=== PATIENT | male | born 1940 | race Caucasian/White ===

== ENCOUNTER 2018-02-20 17:54 | Inpatient (IN) | payer MEDICARE, MEDICAID ==
[~2018-02-20] VITALS: Ht 165.1 cm; Wt 62.6 kg
--- NOTE | 2018-02-20 18:25 | NUR ---
MASON FROM [facility] FOR MEDICAL CLEARANCE AND GEROPSYCH ADMIT FOR +SI NO PLANS AT THIS TIME/ HEARING VOICES, HOLD PLACED 11:35AM. PATIENT IS CALM AND COOPERATIVE, BREATHING EVEN AND UNALBORED. NO SOB, NAD, VITALS STABLE. SAFETY AND COMFORT MEASURES IN PLACE. AWAITING MD ORDERS
[2018-02-20 18:32] LABS: BASOPHILS % (AUTO) 0.7 % (0.0-2.0); EOSINOPHILS % (AUTO) 4.7 % (0.0-6.0); HEMATOCRIT 40 % (39-51); HEMOGLOBIN 13.5 g/dL (13.5-17.5); LYMPHOCYTES # (AUTO) 1.4 /CMM (0.8-4.8); LYMPHOCYTES % (AUTO) 33.6 % (20.0-44.0); MEAN CORPUSCULAR HGB CONC 34 g/dl (31.0-36.0); MEAN CORPUSCULAR VOLUME 86 fL (80-96); MONOCYTES # (AUTO) 0.4 /CMM (0.1-1.30); MONOCYTES % (AUTO) 10.1 % (2.0-12.0); NEUTROPHILS % (AUTO) 50.9 % (43.0-81.0); PLATELET COUNT (AUTO) 130 /CMM (150-450); RDW COEFFICIENT OF VARIATION 14.5 (11.5-15.0); RED BLOOD CELL COUNT(AUTO) 4.64 MIL/uL (4.5-6.0)
--- NOTE | 2018-02-20 18:35 | NUR ---
DATA LIBRARIAN AT BEDSIDE FOR BLOOD DRAW.
[2018-02-20 18:39] LABS: CALCIUM, SERUM 9.6 mg/dL (8.5-10.1); CARBON DIOXIDE 28 mmol/L (21-32); CHLORIDE 106 mmol/L (98-107); CREATININE 1.2 mg/dL (0.6-1.3); GLUCOSE 88 mg/dL (74-106); POTASSIUM 4.2 mmol/L (3.5-5.1); SODIUM SERUM 140 mmol/L (136-145); UREA NITROGEN, BLOOD 20 mg/dL (7-18)
[2018-02-20] MEDS ORDERED: OLAN5TAB3 PO (18:40)
[2018-02-20] MEDS ORDERED: ZOLP5TAB8 PO (18:40)
[2018-02-20] MEDS ORDERED: GABA-534 PO (18:40)
[2018-02-20] MEDS ORDERED: ASPI-1169 PO (18:40)
[2018-02-20] MEDS ORDERED: LEVO50TA8 PO (18:40)
[2018-02-20] MEDS ORDERED: TRAZ-182 PO (18:40)
[2018-02-20] MEDS ORDERED: CETI-108 PO (18:40)
[2018-02-20] MEDS ORDERED: ESCI20TA PO (18:40)
[2018-02-20] MEDS ORDERED: TIMO5DRO35 EACHEYE (18:40)
[2018-02-20] MEDS ORDERED: RANI150T8 PO (18:40)
[2018-02-20 18:45] LABS: ACETAMINOPHEN 3 ug/ml (10-30); ALANINE AMINOTRANSFERASE 22 U/L (12-78); ALBUMIN 3.6 g/dL (3.4-5.0); ALKALINE PHOSPHATASE 61 U/L (46-116); ASPARTATE AMINOTRANSFERASE 17 U/L (15-37); BILIRUBIN,DIRECT 0.1 mg/dL (0.0-0.2); BILIRUBIN,TOTAL 0.5 mg/dL (0.2-1.0); SALICYLATE < 2.8 mg/dL (2.8-20.0); TOTAL PROTEIN, SERUM 6.7 g/dL (6.4-8.2)
[2018-02-20 18:46] LABS: ALCOHOL, BLOOD < 3 mg/dL (0-0)
--- NOTE | 2018-02-20 18:51 | NUR ---
URINE OBTAINED AND SENT TO LAB.
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
--- NOTE | 2018-02-20 19:20 | NUR ---
URINE SENT TO ER STAT LAB. BED RECEIVED. AWAITING URINE.
[2018-02-20 19:24] LABS: APPEARANCE,URINE Clear (CLEAR); BILIRUBIN,URINE Negative (NEGATIVE); BLOOD, URINE Negative Ery/uL (NEGATIVE); COLOR,URINE Yellow (YELLOW); KETONES,URINE Negative (NEGATIVE); LEUKOCYTE ESTERASE ,URINE Negative (NEGATIVE); NITRITE, URINE Negative (NEGATIVE); PROTEIN,URINE Negative (NEGATIVE); UGLUCOSE Negative (NEGATIVE)
[2018-02-20 19:44] LABS: BACTERIA,URINE None seen /HPF (None Seen); RBC,URINE 0-2 /HPF (0-2); SQUAMOUS EPITHELIAL CELL,UR Few /HPF (None Seen); WBC,URINE 0-2 /HPF (0-3)
[2018-02-20 20:30] VITALS: BP 135/57
--- NOTE | 2018-02-20 20:35 | NUR ---
ADMITTED FROM [facility], INITIALLY FROM [facility][1]. PATIENT ADMITTED ON 5150 HOLD FOR DTS. PATIENT ARRIVED TO THE UNIT AROUND 2030 VIA WHEELCHAIR ACCOMPANIED BY 1 MALE ER STAFF. UPON FACE TO FACE PATIENT PATIENT EXPRESSED THOUGHT OF KILLING HIMSELF. AND THAT HE WILL KILL HIMSELF IF HE LEAVES THE CLINIC. REPORTS HE HAS PLAN HOW TO KILL HIMSELF BUT WILL NOT DISCLOSE. PATIENT WAS PLACED IN BED COMFORTABLY. PATIENT IS AWAKE, ALERT, ORIENTED X3-4. PATIENT SIGNED CONTRACT FOR SAFETY. PATIENT SHOWS NO S/S OF PAIN, RESPIRATION EVEN, BREATHING PATTERN NON-LABORED, NO ACUTE DISTRESS NOTED. SKIN WARM DRY AND INTACT, NOTED ABRASION ON THE RIGHT SIDE OF FACE. PATIENT IS AMBULATORY. PATIENT DENIES SI/HI. PATIENT CALM, COOPERATIVE, WELL GROOMED, APPROPRIATE, THOUGH PROCESS INTACT. PATIENT IS UNDER THE PSYCHIATRIC CARE OF DR. ALEXANDER AND MEDICAL CARE OF DR. COULTER. MED RECON NEEDS TO BE DONE. PAGED SR. MARYLIN. PATIENT CALLED HIS DAUGHTER AGUILAR, NOTIFIED THAT HE IS ADMITTED TO THE HOSPITAL. DAUGHTER AGUILAR CALLED LATER, LEFT A MESSAGE THAT SHE WILL VISIT IN THE MORNING. PATIENT WAS MADE AWARE OF HER MESSAGE. BELONGINGS WERE INVENTORIED AND CHECKED FOR CONTRABAND. BED LOCKED AND PLACED ON LOWEST POSITION. WILL CONTINUE TO MONITOR Q 15 MINS. TO MAINTAIN SAFETY.
[2018-02-20] MEDS ORDERED: MAGNESIUM HYDROXIDE 30 ML UDC PO PRN (21:00)
[2018-02-20] MEDS: TEMAZEPAM 7.5 MG CAPSULE PO PRN (22:05)
--- NOTE | 2018-02-20 22:11 | NUR ---
TEMAEZPAM 15 MG CAP PO GIVEN FOR INSOMNIA PER PATIENT'S REQUEST.
[2018-02-21 08:00] VITALS: BP 120/67
[2018-02-21 08:23] LABS: CHOLESTEROL 149 mg/dL (<200); HDL CHOLESTEROL 50 mg/dL (40-60); LDL 95 mg/dL (0-99); TRIGLYCERIDES 63 mg/dL (30-150)
[2018-02-21 08:25] LABS: ALANINE AMINOTRANSFERASE 27 U/L (12-78); ALBUMIN 3.8 g/dL (3.4-5.0); ALKALINE PHOSPHATASE 59 U/L (46-116); ASPARTATE AMINOTRANSFERASE 28 U/L (15-37); BILIRUBIN,TOTAL 0.8 mg/dL (0.2-1.0); CALCIUM, SERUM 9.1 mg/dL (8.5-10.1); CARBON DIOXIDE 26 mmol/L (21-32); CHLORIDE 105 mmol/L (98-107); CREATININE 1.2 mg/dL (0.6-1.3); GLUCOSE 158 mg/dL (74-106); POTASSIUM 3.9 mmol/L (3.5-5.1); SODIUM SERUM 140 mmol/L (136-145); TOTAL PROTEIN, SERUM 7.5 g/dL (6.4-8.2); UREA NITROGEN, BLOOD 18 mg/dL (7-18)
[2018-02-21 08:45] LABS: BASOPHILS % (AUTO) 0.4 % (0.0-2.0); EOSINOPHILS % (AUTO) 2.9 % (0.0-6.0); HEMATOCRIT 43 % (39-51); HEMOGLOBIN 14.1 g/dL (13.5-17.5); LYMPHOCYTES # (AUTO) 1.3 /CMM (0.8-4.8); LYMPHOCYTES % (AUTO) 23.4 % (20.0-44.0); MEAN CORPUSCULAR HGB CONC 33 g/dl (31.0-36.0); MEAN CORPUSCULAR VOLUME 89 fL (80-96); MONOCYTES # (AUTO) 0.3 /CMM (0.1-1.30); MONOCYTES % (AUTO) 4.7 % (2.0-12.0); NEUTROPHILS # (AUTO) 3.7 /CMM (1.8-8.9); NEUTROPHILS % (AUTO) 68.6 % (43.0-81.0); PLATELET COUNT (AUTO) 145 /CMM (150-450); RDW COEFFICIENT OF VARIATION 15.9 (11.5-15.0); RED BLOOD CELL COUNT(AUTO) 4.87 MIL/uL (4.5-6.0); WHITE BLOOD COUNT (AUTO) 5.4 K/uL (4.3-11.0)
--- NOTE | 2018-02-21 09:55 | NUR ---
GPS/MADHU ROSA NP CONTACTED WITH REQUEST TO [facility]
--- NOTE | 2018-02-21 11:30 | NUR ---
GPS/RN PT WAS PROVIDED WITH ACCESS TO HIS PERSONAL CELLPHONE TO GET CONTACT NUMBERS AND TO CALL [facility] UNDER [employer] SUPERVISION. PT HAS ACCESS TO PORTABLE HOSPITAL PHONES ALL THE TIME. MOE WIGGINS CONTACTED AGAIN TO [facility]. RECONCILIATION .
[2018-02-21] MEDS: MAG HYDROX/AL HYDROX/SIMETH 30 ML UDC PO PRN (14:16)
[2018-02-21] MEDS: ACETAMINOPHEN 325 MG TABLET PO PRN (15:32)
[2018-02-21 16:00] VITALS: BP 121/54
[2018-02-21] MEDS ORDERED: GABAPENTIN 300 MG CAPSULE PO SCH (17:00)
[2018-02-21 20:00] VITALS: BP 137/67
[2018-02-21] MEDS: FAMOTIDINE (20 MG) 20 MG TABLET PO SCH (20:31)
[2018-02-21] MEDS: QUETIAPINE FUMARATE 25 MG TABLET PO SCH (20:32)
[2018-02-21] MEDS: TRAZODONE 50 MG TABLET PO SCH (21:05)
[2018-02-21] MEDS: TEMAZEPAM 7.5 MG CAPSULE PO PRN (21:06)
--- NOTE | 2018-02-21 21:37 | NUR ---
GPS/RN-CALLED DR. COULTER TO CLARIFY ORDER OF GABAPENTIN.ORDERED TO D/C PREVIOUS ORDER AND CHANGE IT TO GABAPENTIN 600 MG.TID,NOTED AND CARRIED OUT.
[2018-02-22 08:00] VITALS: BP 132/67
[2018-02-22] MEDS: QUETIAPINE FUMARATE 25 MG TABLET PO SCH ×2 (08:15→21:52)
[2018-02-22] MEDS: FAMOTIDINE (20 MG) 20 MG TABLET PO SCH ×2 (08:15→21:51)
[2018-02-22] MEDS: GABAPENTIN 300 MG CAPSULE PO SCH ×3 (08:19→16:34)
[2018-02-22] MEDS: cetrizine 10 MG TABLET PO SCH (08:19)
[2018-02-22] MEDS: ASPIRIN 81 MG TAB.CHEW PO SCH (08:19)
[2018-02-22] MEDS: LEVOTHYROXINE SODIUM 50 MCG TABLET PO SCH (08:20)
[2018-02-22] MEDS: SERTRALINE HCL 50 MG TABLET PO SCH (08:20)
[2018-02-22] MEDS: TIMOLOL 0.5% SOLN OPHTH 5 ML BOTTLE EACHEYE SCH (08:28)
[2018-02-22 16:00] VITALS: BP 102/56
[2018-02-22 20:00] VITALS: BP 146/73
[2018-02-22] MEDS: TRAZODONE 50 MG TABLET PO SCH (21:52)
[2018-02-22] MEDS: TEMAZEPAM 7.5 MG CAPSULE PO PRN (22:58)
[2018-02-23] MEDS: LEVOTHYROXINE SODIUM 50 MCG TABLET PO SCH (07:55)
[2018-02-23] MEDS: GABAPENTIN 300 MG CAPSULE PO SCH ×3 (08:02→16:20)
[2018-02-23] MEDS: FAMOTIDINE (20 MG) 20 MG TABLET PO SCH ×2 (08:02→21:01)
[2018-02-23] MEDS: ASPIRIN 81 MG TAB.CHEW PO SCH (08:02)
[2018-02-23] MEDS: cetrizine 10 MG TABLET PO SCH (08:02)
[2018-02-23] MEDS: TIMOLOL 0.5% SOLN OPHTH 5 ML BOTTLE EACHEYE SCH (08:02)
[2018-02-23] MEDS: QUETIAPINE FUMARATE 25 MG TABLET PO SCH ×2 (08:02→21:01)
[2018-02-23] MEDS: SERTRALINE HCL 50 MG TABLET PO SCH (08:02)
[2018-02-23 09:30] VITALS: BP 122/62
--- NOTE | 2018-02-23 15:51 | NUR ---
Initial Discharge Plan: Pt currently lives with his family in their home located at [address] [place] [address]; ([phone]). Per pt, he stated that he would like to be transferred to a [facility] facility. SW will work with the pt and the MD regarding appropriate discharge planning. SW will form a safe and proper discharge.
--- NOTE | 2018-02-23 15:51 | NUR ---
MIO called the pt's daughter, Sherice ([phone]), and received a history from her about the pt. The SW then informed the daughter about the discharge plan and she stated that the plan that the psychiatrist thinks is the best is acceptable to her.
[2018-02-23 16:40] VITALS: BP 96/55
[2018-02-23 20:39] VITALS: BP 128/61
[2018-02-23] MEDS: TRAZODONE 50 MG TABLET PO SCH (21:01)
[2018-02-24] MEDS: TEMAZEPAM 7.5 MG CAPSULE PO PRN (00:37)
[2018-02-24 08:00] VITALS: BP 106/54
[2018-02-24] MEDS: LEVOTHYROXINE SODIUM 50 MCG TABLET PO SCH (08:16)
[2018-02-24] MEDS: FAMOTIDINE (20 MG) 20 MG TABLET PO SCH ×2 (08:17→21:24)
[2018-02-24] MEDS: ASPIRIN 81 MG TAB.CHEW PO SCH (08:17)
[2018-02-24] MEDS: SERTRALINE HCL 50 MG TABLET PO SCH (08:17)
[2018-02-24] MEDS: QUETIAPINE FUMARATE 25 MG TABLET PO SCH ×2 (08:17→21:24)
[2018-02-24] MEDS: cetrizine 10 MG TABLET PO SCH (08:17)
[2018-02-24] MEDS: GABAPENTIN 300 MG CAPSULE PO SCH ×3 (08:17→16:04)
[2018-02-24] MEDS: TIMOLOL 0.5% SOLN OPHTH 5 ML BOTTLE EACHEYE SCH (08:19)
[2018-02-24 16:05] VITALS: BP 100/59
--- NOTE | 2018-02-24 19:30 | NUR ---
GPS RN NOTE, RECEIVED PATIENT AWAKE AND IN BED, NO S/S OR COMPLAINTS OF PAIN AT THIS TIME. PATIENT IS DISPLAYING NO S/S OF APPARENT DISTRESS AT THIS TIME. PATIENT BREATHING IS UNLABORED WITH EQUAL RISE AND FALL OF THE CHEST. PATIENT IS ALERT AND ORIENTED X 3 ON ROOM AIR WITH A SPO2 OF 96%. PATIENT IS MED COMPLIANT, CALM, COOPERATIVE, DISORGANIZED, CONFUSED AT TIMES, AND NEEDS REDIRECTION. PATIENT DENIES SUICIDE IDEATIONS AND HOMICIDAL IDEATIONS AT THIS TIME. PATIENT ASSISTED WITH TURNING AND REPOSITIONING Q 2HRS AND PRN FOR COMFORT AND CIRCULATION. PATIENT HAS NO NEEDS AT THIS TIME. PATIENT EDUCATED ON THE USE OF THE CALL [place]. PATIENT BED SIDE RAILS UP X 2 FOR SAFETY, BED IS LOCKED, LOW, AND I WILL CONTINUE TO MONITOR AND MAINTAIN SAFETY Q15 MIN WITH THE HELP OF STAFF.
[2018-02-24 20:00] VITALS: BP 131/54
[2018-02-24] MEDS: TRAZODONE 50 MG TABLET PO SCH (21:24)
[2018-02-25] MEDS: LEVOTHYROXINE SODIUM 50 MCG TABLET PO SCH ×2 (06:59→08:34)
[2018-02-25 08:00] VITALS: BP 103/59
[2018-02-25] MEDS: FAMOTIDINE (20 MG) 20 MG TABLET PO SCH ×2 (08:34→20:50)
[2018-02-25] MEDS: ASPIRIN 81 MG TAB.CHEW PO SCH (08:34)
[2018-02-25] MEDS: QUETIAPINE FUMARATE 25 MG TABLET PO SCH ×2 (08:34→20:51)
[2018-02-25] MEDS: cetrizine 10 MG TABLET PO SCH (08:34)
[2018-02-25] MEDS: SERTRALINE HCL 50 MG TABLET PO SCH (08:34)
[2018-02-25] MEDS: GABAPENTIN 300 MG CAPSULE PO SCH ×3 (08:34→18:08)
[2018-02-25] MEDS: TIMOLOL 0.5% SOLN OPHTH 5 ML BOTTLE EACHEYE SCH (08:39)
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
--- NOTE | 2018-02-25 09:33 | NUR ---
MIO faxed a referral for the pt to [facility] to the fax number: [phone].
[2018-02-25] MEDS: LORAZEPAM 0.5 MG TABLET PO PRN (15:29)
--- NOTE | 2018-02-25 15:30 | NUR ---
RN-CO: ATIVAN 1 MG PO GIVEN FOR SEVERE SADNESS AND TEARFULNESS.
[2018-02-25 16:00] VITALS: BP 137/68
[2018-02-25] MEDS: MAG HYDROX/AL HYDROX/SIMETH 30 ML UDC PO PRN (18:10)
[2018-02-25 19:47] VITALS: BP 109/59
[2018-02-25 20:00] VITALS: BP 100/56
[2018-02-25] MEDS: TRAZODONE 50 MG TABLET PO SCH (21:01)
[2018-02-26 08:00] VITALS: BP 120/59
[2018-02-26] MEDS: FAMOTIDINE (20 MG) 20 MG TABLET PO SCH ×2 (08:24→20:39)
[2018-02-26] MEDS: QUETIAPINE FUMARATE 25 MG TABLET PO SCH ×2 (08:24→20:39)
[2018-02-26] MEDS: cetrizine 10 MG TABLET PO SCH (08:24)
[2018-02-26] MEDS: GABAPENTIN 300 MG CAPSULE PO SCH ×3 (08:24→17:09)
[2018-02-26] MEDS: SERTRALINE HCL 50 MG TABLET PO SCH (08:24)
[2018-02-26] MEDS: ASPIRIN 81 MG TAB.CHEW PO SCH (08:25)
[2018-02-26] MEDS: TIMOLOL 0.5% SOLN OPHTH 5 ML BOTTLE EACHEYE SCH (08:25)
[2018-02-26] MEDS: LEVOTHYROXINE SODIUM 50 MCG TABLET PO SCH (08:25)
--- NOTE | 2018-02-26 13:52 | NUR ---
Pt's social professionals at [facility], Kika ([phone]), called the SW and discussed the discharge plan. Kika stated that a long-term is an acceptable plan.
--- NOTE | 2018-02-26 15:30 | NUR ---
Bridgette ([phone]) from [facility] stated that the pt was denied admission due to his suicidal tendencies.
--- NOTE | 2018-02-26 15:31 | NUR ---
MIO faxed two referrals for the pt. One referral was sent to [facility] to the fax number: [phone] and one referral was sent to [facility] to the fax number: [phone].
--- NOTE | 2018-02-26 16:10 | NUR ---
Jennifer ([phone]) from [facility] called the SW and asked some questions regarding the pt before talking to the DON.
--- NOTE | 2018-02-26 16:12 | NUR ---
Matilde ([phone]) from [facility] stated that her DON is currently reviewing the pt's referral.
[2018-02-26 16:25] VITALS: BP 135/66
[2018-02-26] MEDS: TEMAZEPAM 7.5 MG CAPSULE PO PRN (20:39)
--- NOTE | 2018-02-26 20:40 | NUR ---
TEMAZEPAM 15 MG CAP PO GIVEN FOR SLEEP.
[2018-02-26] MEDS: TRAZODONE 50 MG TABLET PO SCH (22:05)
[2018-02-27 08:00] VITALS: BP 114/60
[2018-02-27] MEDS: SERTRALINE HCL 50 MG TABLET PO SCH (09:19)
[2018-02-27] MEDS: GABAPENTIN 300 MG CAPSULE PO SCH ×3 (09:19→17:43)
[2018-02-27] MEDS: cetrizine 10 MG TABLET PO SCH (09:19)
[2018-02-27] MEDS: LEVOTHYROXINE SODIUM 50 MCG TABLET PO SCH (09:19)
[2018-02-27] MEDS: QUETIAPINE FUMARATE 25 MG TABLET PO SCH ×2 (09:19→20:53)
[2018-02-27] MEDS: ASPIRIN 81 MG TAB.CHEW PO SCH (09:19)
[2018-02-27] MEDS: FAMOTIDINE (20 MG) 20 MG TABLET PO SCH ×2 (09:19→20:52)
[2018-02-27] MEDS: TIMOLOL 0.5% SOLN OPHTH 5 ML BOTTLE EACHEYE SCH (09:20)
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
--- NOTE | 2018-02-27 11:44 | NUR ---
MIO met with the pt's daughter, Debbie ([phone]), when she came to visit the pt. She stated that a group home in [place] is an acceptable location for the pt and her family members. She also wanted to know about his behaviors so the SW stated that he is very depressed but he has been cooperative with the staff and has been compliant with medications.
--- NOTE | 2018-02-27 11:49 | NUR ---
MIO called the pt's daughter, Sherice ([phone]), and informed her that the pt was accepted into a shelter and that the tentative discharge date for right now is Friday.
--- NOTE | 2018-02-27 11:50 | NUR ---
Matilde ([phone]) from [facility] stated that the pt was accepted to the facility.
--- NOTE | 2018-02-27 11:51 | NUR ---
Dr. Vitale ([phone]), called the SW, and discussed the pt's discharge plan as well as his current progress. SW stated that the pt is still stating that he is depressed but is content with his current discharge plan.
--- NOTE | 2018-02-27 11:51 | NUR ---
Pt gave the permission to speak to Dr. Vitale and provide him with updates.
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
[2018-02-27] MEDS: NEOMY SULF/BACITRAC ZN/POLY 15 GM TUBE TP SCH (14:22)
[2018-02-27 16:00] VITALS: BP 98/59
[2018-02-27 20:00] VITALS: BP 100/57
[2018-02-27] MEDS: TRAZODONE 50 MG TABLET PO SCH (20:53)
[2018-02-27] MEDS: TEMAZEPAM 7.5 MG CAPSULE PO PRN (20:54)
--- NOTE | 2018-02-27 20:54 | NUR ---
TEMAZEPAM 15 MG CAP PO GIVEN FOR SLEEP.
[2018-02-28 08:00] VITALS: BP 118/55
[2018-02-28] MEDS: QUETIAPINE FUMARATE 25 MG TABLET PO SCH ×2 (09:12→21:10)
[2018-02-28] MEDS: SERTRALINE HCL 50 MG TABLET PO SCH (09:13)
[2018-02-28] MEDS: ASPIRIN 81 MG TAB.CHEW PO SCH (09:13)
[2018-02-28] MEDS: TIMOLOL 0.5% SOLN OPHTH 5 ML BOTTLE EACHEYE SCH (09:13)
[2018-02-28] MEDS: NEOMY SULF/BACITRAC ZN/POLY 15 GM TUBE TP SCH (09:13)
[2018-02-28] MEDS: GABAPENTIN 300 MG CAPSULE PO SCH ×4 (09:13→17:13)
[2018-02-28] MEDS: cetrizine 10 MG TABLET PO SCH (09:13)
[2018-02-28] MEDS: FAMOTIDINE (20 MG) 20 MG TABLET PO SCH ×2 (09:18→21:11)
[2018-02-28] MEDS: ACETAMINOPHEN 325 MG TABLET PO PRN (11:27)
[2018-02-28 16:01] VITALS: BP 129/61
[2018-02-28 20:00] VITALS: BP 123/63
[2018-02-28] MEDS: TRAZODONE 50 MG TABLET PO SCH (21:10)
[2018-02-28] MEDS: TEMAZEPAM 7.5 MG CAPSULE PO PRN (21:11)
[2018-03-01] MEDS: LEVOTHYROXINE SODIUM 50 MCG TABLET PO SCH ×2 (07:20→08:02)
--- NOTE | 2018-03-01 07:24 | NUR ---
GPS/RN PT REFUSED LEVOTHYROXINE SCHEDULED FOR 729. OFFERED X3. PT STATES : " I WILL NOT TAKE ANY MEDICATIONS AND WILL REFUSE TO EAT TODAY..."
[2018-03-01] MEDS: FAMOTIDINE (20 MG) 20 MG TABLET PO SCH ×2 (08:02→21:58)
[2018-03-01] MEDS: GABAPENTIN 300 MG CAPSULE PO SCH ×3 (08:02→17:48)
[2018-03-01] MEDS: cetrizine 10 MG TABLET PO SCH (08:02)
[2018-03-01] MEDS: LORAZEPAM 0.5 MG TABLET PO PRN (08:02)
[2018-03-01] MEDS: ASPIRIN 81 MG TAB.CHEW PO SCH (08:02)
[2018-03-01] MEDS: SERTRALINE HCL 50 MG TABLET PO SCH (08:02)
[2018-03-01] MEDS: TIMOLOL 0.5% SOLN OPHTH 5 ML BOTTLE EACHEYE SCH (08:03)
[2018-03-01] MEDS: NEOMY SULF/BACITRAC ZN/POLY 15 GM TUBE TP SCH (08:20)
[2018-03-01] MEDS: QUETIAPINE FUMARATE 25 MG TABLET PO SCH ×2 (08:20→21:58)
[2018-03-01 08:22] VITALS: BP 137/70
[2018-03-01 16:00] VITALS: BP 100/53
[2018-03-01 20:00] VITALS: BP 111/61
[2018-03-01] MEDS: TRAZODONE 50 MG TABLET PO SCH (21:58)
[2018-03-02] MEDS: LEVOTHYROXINE SODIUM 50 MCG TABLET PO SCH (07:09)
[2018-03-02 08:00] VITALS: BP 119/53
[2018-03-02] MEDS: cetrizine 10 MG TABLET PO SCH (09:01)
[2018-03-02] MEDS: QUETIAPINE FUMARATE 25 MG TABLET PO SCH ×2 (09:01→20:34)
[2018-03-02] MEDS: FAMOTIDINE (20 MG) 20 MG TABLET PO SCH ×2 (09:01→20:34)
[2018-03-02] MEDS: ASPIRIN 81 MG TAB.CHEW PO SCH (09:01)
[2018-03-02] MEDS: SERTRALINE HCL 50 MG TABLET PO SCH (09:02)
[2018-03-02] MEDS: TIMOLOL 0.5% SOLN OPHTH 5 ML BOTTLE EACHEYE SCH (09:07)
[2018-03-02] MEDS: GABAPENTIN 300 MG CAPSULE PO SCH ×3 (09:08→16:32)
[2018-03-02] MEDS: NEOMY SULF/BACITRAC ZN/POLY 15 GM TUBE TP SCH (09:08)
--- NOTE | 2018-03-02 15:45 | NUR ---
SW met with the pt and explained to him what a nursing facility is like. He stated that he does not want to go unless he will be given passes to leave.
--- NOTE | 2018-03-02 15:46 | NUR ---
MIO confirmed with Matilde ([phone]) from [facility] that the pt is still accepted to the facility.
[2018-03-02 16:00] VITALS: BP 94/53
[2018-03-02] MEDS: TRAZODONE 50 MG TABLET PO SCH (21:04)
[2018-03-03 08:13] VITALS: BP 118/75
[2018-03-03] MEDS: ASPIRIN 81 MG TAB.CHEW PO SCH (08:14)
[2018-03-03] MEDS: cetrizine 10 MG TABLET PO SCH (08:14)
[2018-03-03] MEDS: GABAPENTIN 300 MG CAPSULE PO SCH ×2 (08:14→12:20)
[2018-03-03] MEDS: FAMOTIDINE (20 MG) 20 MG TABLET PO SCH (08:14)
[2018-03-03] MEDS: SERTRALINE HCL 50 MG TABLET PO SCH (08:14)
[2018-03-03] MEDS: LEVOTHYROXINE SODIUM 50 MCG TABLET PO SCH (08:15)
[2018-03-03] MEDS: QUETIAPINE FUMARATE 25 MG TABLET PO SCH (08:15)
[2018-03-03] MEDS: TIMOLOL 0.5% SOLN OPHTH 5 ML BOTTLE EACHEYE SCH (08:18)
[2018-03-03] MEDS: NEOMY SULF/BACITRAC ZN/POLY 15 GM TUBE TP SCH (09:00)
--- NOTE | 2018-03-03 10:10 | NUR ---
SW called the pt's daughter, Sherice ([phone]), and informed her that the pt is currently refusing to be placed in a facility. SW asked her to talk to the pt and see if family involvement and encouragement will help.
--- NOTE | 2018-03-03 10:11 | NUR ---
MIO called the pt's licensed clinical social worker at [facility], Kika ([phone]), and left a message on her voicemail stating that the pt is now changing the discharge plan and asked for a call back.
--- NOTE | 2018-03-03 10:12 | NUR ---
MIO called Jennifer ([phone]) from [facility] and asked her about an update in regards to admission. She stated that the DON of the facility is currently trying to contact Dr. Reddy to have some questions answered.
--- NOTE | 2018-03-03 10:13 | NUR ---
MIO contacted Milton ([phone]) and informed him about the situation with the pt refusing placement and he stated that he would come talk to the pt and assist him with getting answers to his questions.
--- NOTE | 2018-03-03 11:21 | NUR ---
Milton ([phone]) met with the SW and talked to the pt and discussed what living at the facility would be like for the pt. At the end of the conversation the pt stated that he would accept placement.
--- NOTE | 2018-03-03 11:22 | NUR ---
MIO called the pt's director social service at [facility] ([phone]), and informed her that the pt accepted SNF placement but the facility needs an update about the [address] [employer] housing. She stated that the medical staff credentialing coordinator will contact the facility.
--- NOTE | 2018-03-03 11:39 | NUR ---
Lacey ([phone]), from [facility], called the SW and discussed the pt's discharge plan and medical condition. Pt was admitted to the facility and accepted the placement.
--- NOTE | 2018-03-03 11:41 | NUR ---
Pt told the SW that he changed his mind again and that he does not want to be discharged to the facility.
--- NOTE | 2018-03-03 11:42 | NUR ---
MIO called the pt's daughter, Sherice ([phone]), and answered some questions that she had about the facility and then discussed trying to convince the pt once again that this is the recommended discharge plan for him right now.
--- NOTE | 2018-03-03 12:06 | NUR ---
SW spoke to the pt and he stated that he changed his mind and will accept placement at [facility].
--- NOTE | 2018-03-03 16:30 | NUR ---
Discharge Note: Pt is being discharged [facility] ([facility]) [address] [place] [id number]; . Pt will be transported via [facility] (Trip #[id number]) at 3pm. Pts daughter, Sherice ([phone]), agreed to the placement as well as the pt. Upon discharge, the pt appeared to be in a euthymic mood with an anxious affect. Pt denied both suicidal and homicidal ideation as well as auditory and visual hallucinations. Pt will be under the care of psychiatrist, Dr. Richmond, located at [address] [place] [address] [address], [place] [address]; and his manager family, Dr. Becerra, located at [address] [place] [address]; .
--- NOTE | 2018-03-03 16:35 | NUR ---
GPS/RN PATIENT CLEARED FOR DISCHARGE TO [facility] BY DR MAGDALENO AND COLORER MACHINE MARGARITA. MEDICATIONS RECONCILED BY BOTH DR'S, EXIT CARE, MEDICATIONS AND AFTERCARE PLAN EXPLAINED TO PATIENT, VERBALIZED UNDERSTANDING. D/C PAPER WORK COMPLETED, BELONGINGS AND VALUABLES RETURNED, FORM SIGNED BY PATIENT. UNABLE TO LOCATE UNDERWEAR , PATIENT ACCEPTED 2 PAIR DISPOSABLE UNDERWEAR. REPORT CALLED TO ARIANA AT FACILITY. PATIENT DENIES SI/HI/AH UPON DISCHARGE, PSYCHIATRIC TREATMENT PLANS MET. LEFT UNIT CALM, COOPERATIVE, NO DISTRESS WITH AMBULANCE TRANSPORT AT SIDE.
== END 2018-03-03 16:35 | DRG 885 ==
LOC: ER 18:01 → GPS 19:28
PROVIDERS: ADMIT Psychiatry & Neurology Psychiatry; ATTEND Student in an Organized Health Care Education/Training Program
DX: F33.3 Major depressive disorder, recurrent, severe with psychotic symptoms (principal); N17.0 Acute kidney failure with tubular necrosis; R45.851 Suicidal ideations; E03.9 Hypothyroidism, unspecified; Z85.72 Personal history of non-Hodgkin lymphomas; K21.9 Gastro-esophageal reflux disease without esophagitis; E78.5 Hyperlipidemia, unspecified; D69.6 Thrombocytopenia, unspecified; Z85.038 Personal history of other malignant neoplasm of large intestine; Z91.5 Personal history of self-harm; Z90.49 Acquired absence of other specified parts of digestive tract; S00.01XA Abrasion of scalp, initial encounter; X58.XXXA Exposure to other specified factors, initial encounter; Y93.9 Activity, unspecified; Y92.9 Unspecified place or not applicable
CPT/HCPCS: 36415; 80048-TC; 80053-TC; 80061-TC; 80076-TC; 80305; 81000-TC; 85025-TC; 87081-TC; A4606; G0480; Z7610